=== PATIENT | female | born 1985 | race Caucasian/White ===

== ENCOUNTER 2018-03-25 10:30 | Inpatient (IN) | payer OTHER ==
[~2018-03-25] VITALS: Ht 152.4 cm; Wt 3.2 kg
[2018-04-21] MEDS ORDERED: PRENATAL FORMU1 EAC1 PO (09:21)
[2018-04-24] MEDS ORDERED: CODE1TAB37 PO (09:33)
[2018-04-24] MEDS ORDERED: IBUPROFEN800 MG PO (09:33)
== END 2018-04-24 11:26 | DRG 788 ==
LOC: OB/GYN 04-20 10:30 → LDR 04-21 07:17 → OB/GYN 04-21 19:47
PROVIDERS: Obstetrics & Gynecology
PROC: 4A1HXCZ Monitoring of Products of Conception, Cardiac Rate, External Approach (ICD-10-PCS; 2018-04-21)
PROC: 4A033R1 Measurement of Arterial Saturation, Peripheral, Percutaneous Approach (ICD-10-PCS; 2018-04-21)
PROC: 10D00Z1 Extraction of Products of Conception, Low, Open Approach (ICD-10-PCS; principal; 2018-04-21 17:00)
DX: O62.1 Secondary uterine inertia (principal); Z3A.40 40 weeks gestation of pregnancy; Z37.0 Single live birth